=== PATIENT | female | born 1960 | race Caucasian/White ===

== ENCOUNTER 2018-03-06 22:11 | Emergency (ER) | payer OTHER ==
[~2018-03-06] VITALS: Ht 160 cm; Wt 53.6 kg
[2018-03-06 22:30] VITALS: Ht 160 cm; Wt 53.6 kg
[2018-03-07 00:16] LABS: UA SPECIFIC GRAVITY 1.025 (1.005-1.035); microscopic required? YES; urine erythrocyte 3+ (NEGATIVE)
[2018-03-07 03:50] LABS: PLATELET COUNT 179 x10^3mcL (130-400); RED CELL DISTRIBUTION WIDTH 14.5 % (11.5-14.5)
[2018-03-07 03:54] LABS: BASOPHIL % 0 % (0-2)
[2018-03-07 04:48] LABS: CALCIUM 7.2 mg/dL (8.5-10.1); CARBON DIOXIDE 26.9 mmol/L (21-32); CHLORIDE SERUM 111 mmol/L (98-107); CREATININE SERUM 0.7 mg/dL (0.6-1.0); GFR1 > 60 mL/min; GLUCOSE SERUM 117 mg/dL (74-106); POTASSIUM SERUM 3.6 mmol/L (3.5-5.1); SODIUM SERUM 145 mmol/L (136-145)
[2018-03-07 04:54] LABS: ALBUMIN 2.9 g/dL (3.4-5.0); ALKALINE PHOSPHATASE 80 U/L (46-116); ALT/SGPT 31 U/L (14-59); AST/SGOT 54 U/L (15-37); BILIRUBIN TOTAL 0.34 mg/dL (0.20-1.00); TOTAL PROTEIN, SERUM 6.1 g/dL (6.4-8.2)
[2018-03-07 05:42] VITALS: BP 93/52
== END 2018-03-07 05:42 | disposition home or self-care (01) ==
LOC: ED 22:11
PROVIDERS: Emergency Medicine
DX: S13.9XXA Sprain of joints and ligaments of unspecified parts of neck, initial encounter (principal); N39.0 Urinary tract infection, site not specified; R51 Headache; Z90.49 Acquired absence of other specified parts of digestive tract; V43.62XA Car passenger injured in collision with other type car in traffic accident, initial encounter; Y93.89 Activity, other specified; Y92.413 State road as the place of occurrence of the external cause; Y99.8 Other external cause status
CPT/HCPCS: 36415; J0696; J1885; J2270; J7030